=== PATIENT | female | born 1995 | race Caucasian/White ===

== ENCOUNTER 2018-05-19 21:21 | Emergency (ER) | payer OTHER ==
--- NOTE | 2018-05-19 21:22 | UC ---
Complaint Female HPI - HPI Summary HPI Summary: 22 yo female presents with vaginal discharge and odor for the last 3-4 days. She thought this was a yeast infection and treated herself with OTC medication with relief for about a day, but then came back. Denies fever, chills, abdominal pain, n/v, or dysuria. She has no concerns for STDs as she has had the same boyfriend for years, but would like testing via cultures today. - History Of Current Complaint Stated Complaint: VAGINAL DISCHARGE Time Seen by Provider: 05/19/18 21:22 Hx Obtained From: Patient Onset/Duration: Sudden Onset Timing: Constant Severity Currently: None - Allergies/Home Medications Allergies/Adverse Reactions: Allergies Allergy/AdvReac Type Severity Reaction Status Date / Time No Known Allergies Allergy Verified 05/19/18 21:42 Home Medications: Home Medications ARIPiprazole TAB* [Abilify 2 MG TAB*] 2 mg PO BEDTIME 05/19/18 [History Confirmed 05/19/18] Amphetamine MIXED SALT TAB* [Adderall TAB*] 10 mg PO DAILY 05/19/18 [History Confirmed 05/19/18] lamoTRIgine TAB(*) [LaMICtal TAB(*)] 200 mg PO BEDTIME 05/19/18 [History Confirmed 05/19/18] PMH/Surg Hx/FS Hx/Imm Hx - Additional Past Medical History Additional PMH: None Previously Healthy: Yes - Surgical History Surgical History: None - Family History Known Family History: Positive: None - Social History Occupation: Employed Full-time Lives: With Family Alcohol Use: None Substance Use Type: None Smoking Status (MU): Never Smoked Tobacco Review of Systems Constitutional: Negative Skin: Negative Respiratory: Negative Cardiovascular: Negative Genitourinary: Vaginal/Penile Discharge Motor: Negative Neurovascular: Negative Psychological: Negative All Other Systems Reviewed And Are Negative: Yes Physical Exam - Summary Physical Exam Summary: GENERAL: NAD. WDWN. No pain distress. SKIN: No rashes, sores, lesions, or open wounds. NECK: Supple. Nontender. No lymphadenopathy. CHEST: CTAB. No r/r/w. No accessory muscle use. Breathing comfortably and in no distress. CV: Tachycardia. Without m/r/g. Pulses intact. Brisk cap refill. ABDOMEN: Soft. NTTP. No distention or guarding. Bowel sounds present NEURO: Alert. PSYCH: Age appropriate behavior. Triage Information Reviewed: Yes Vital Signs: Vital Signs: Temp Pulse Resp BP Pulse Ox 98.9 F 118 16 116/84 99 05/19/18 21:34 05/19/18 21:34 05/19/18 21:34 05/19/18 21:34 05/19/18 21:34 Vital Signs Reviewed: Yes Pelvic Exam: Positive: External Exam Normal, No Cerv. Motion Tender, No Masses, Discharge - Thick white with thin milky and fishy odor, Other - Silke RN assisted with exam. Negative: Active Bleeding, Blood, Lesions, Mass, Ulcers Complaint Female Dx - Course Course Of Treatment: Suspect yeast and/or BV. Pt was given diflucan and one dose of flagyl in the clinical course. Rx for diflucan to repeat in 3 days if needed and rx for flagyl for 1 week sent. Cultures obtained for GC/Chlamydia, trich, BV, and yeast. Will call with results. - Differential Dx/Diagnosis Provider Diagnoses: Vaginal yeast infection. BV Discharge - Sign-Out/Discharge Documenting (check all that apply): Discharge/Admit/Transfer - Discharge Plan Condition: Stable Disposition: HOME Prescriptions: Fluconazole 100 MG TAB* [Diflucan 100 MG TAB*] 100 mg PO DAILY #1 tab metroNIDAZOLE [Flagyl 500 MG TAB] 500 mg PO BID #14 tab Patient Education Materials: Bacterial Vaginosis (ED), Yeast Infection (ED) Referrals: No Primary Care Phys,NOPCP [Primary Care Provider] - Additional Instructions: If you develop a fever, shortness of breath, chest pain, new or worsening symptoms - please call your PCP or go to the ED. - Billing Disposition and Condition Condition: STABLE Disposition: Home
[2018-05-19 21:42] VITALS: BP 116/84
[2018-05-19] MEDS ORDERED: metroNIDAZOLE TAB* 250 MG PO ONE (21:55)
[2018-05-19] MEDS ORDERED: Fluconazole 100 MG TAB* TAB PO ONE (21:55)
== END 2018-05-19 22:14 | disposition home or self-care (01) ==
LOC: UCEAST 21:21
DX: B37.3 Candidiasis of vulva and vagina (principal); N76.0 Acute vaginitis; B96.89 Other specified bacterial agents as the cause of diseases classified elsewhere
CPT/HCPCS: 87480; 87491; 87510; 87591; 87661; 99203; A9270-GY; G0463

== ENCOUNTER 2018-06-05 21:17 | Emergency (ER) | payer OTHER ==
[2018-06-05 21:28] VITALS: BP 118/77
--- NOTE | 2018-06-05 21:53 | ED ---
GI/ HPI - HPI Summary HPI Summary: 23-year-old female presents for STD testing today. She states she's been having a abnormal vaginal discharge past 2 days. States she states that it feels itchy. She denies any dysuria. She denies any fevers. No nausea no vomiting. She denies any constipation or diarrhea. She states that she needs an ekg per her psychiatrist as she has been having palpations. She states she is currently having palpitations she believes due to anxiety. She denies any chest pain or shortness breath. - History of Current Complaint Chief Complaint: UCGeneralIllness Time Seen by Provider: 06/05/18 21:44 Stated Complaint: STD TESTING Hx Last Menstrual Period: 05/22/18 Pain Intensity: 3 - Allergy/Home Medications Allergies/Adverse Reactions: Allergies Allergy/AdvReac Type Severity Reaction Status Date / Time No Known Allergies Allergy Verified 06/05/18 21:28 PMH/Surg Hx/FS Hx/Imm Hx Endocrine/Hematology History: Denies: Hx Diabetes, Hx Thyroid Disease Cardiovascular History: Denies: Hx Hypertension Respiratory History: Denies: Hx Asthma, Hx Chronic Obstructive Pulmonary Disease (COPD) GI History: Denies: Hx Ulcer Infectious Disease History: No Infectious Disease History: Denies: Hx Hepatitis, Hx Human Immunodeficiency Virus (HIV), Traveled Outside the [place] in Last 30 Days - Family History Known Family History: Positive: None - Social History Alcohol Use: Occasionally Substance Use Type: Reports: Marijuana Substance Use Comment - Amount & Last Used: ocassional Smoking Status (MU): Never Smoked Tobacco Review of Systems Negative: Fever Negative: Chest Pain Negative: Shortness Of Breath Positive: Other - vaginal discharge All Other Systems Reviewed And Are Negative: Yes Physical Exam Triage Information Reviewed: Yes Vital Signs On Initial Exam: Initial Vitals Temp Pulse Resp BP Pulse Ox 97.6 F 86 18 118/77 100 06/05/18 21:23 06/05/18 21:23 06/05/18 21:23 06/05/18 21:23 06/05/18 21:23 Vital Signs Reviewed: Yes Appearance: Positive: Well-Appearing Skin: Positive: Warm, Dry Head/Face: Positive: Normal Head/Face Inspection Eyes: Positive: Normal, Conjunctiva Clear ENT: Positive: Pharynx normal Respiratory/Lung Sounds: Positive: Clear to Auscultation, Breath Sounds Present Cardiovascular: Positive: Normal, RRR Abdomen Description: Positive: Nontender, Soft Bowel Sounds: Positive: Present Pelvic Exam: Positive: External Exam Normal, Cervicitis, Discharge - white, Tender w/ Cervical Motion Musculoskeletal: Positive: Normal Neurological: Positive: Normal Psychiatric: Positive: Normal Diagnostics - Vital Signs Vital Signs Temp Pulse Resp BP Pulse Ox 06/05/18 21:23 97.6 F 86 18 118/77 100 - Laboratory Lab Statement: Any lab studies that have been ordered have been reviewed, and results considered in the medical decision making process. - EKG No standard instances Cardiac Rate: NL EKG Rhythm: Sinus Rhythm ST Segment: Normal Ectopy: PACs EKG Interpretation: sinus arrhythmia GIGU Course/Dx - Course Course Of Treatment: 23-year-old female presents for STD testing today. She states she's been having a abnormal vaginal discharge past 2 days. States she states that it feels itchy. She denies any dysuria. She denies any fevers. No nausea no vomiting. She denies any constipation or diarrhea. She states that she needs an ekg per her psychiatrist as she has been having palpations. She states she is currently having palpitations she believes due to anxiety. She denies any chest pain or shortness breath. on exam abd soft nontender. pelvic exam white discharge present, has redness of cervix with minimal CMT. will treat as potential PID/cervicitis with rocephin and azithromycin. gave dose of diflucain too. ekg shows sinus arrhythmia. will wait for cultures. patient understand and agrees with plan. - Diagnoses Differential Diagnoses - Female: Pelvic Inflammatory Disease, STD, Urinary Tract Infection, Other - ekg Provider Diagnoses: Vaginal discharge Discharge - Sign-Out/Discharge Documenting (check all that apply): Patient Departure - Discharge Plan Condition: Good Disposition: HOME Patient Education Materials: Cervicitis (ED) Referrals: Sebastien Smith MD [Medical Doctor] - [facility] [Outside] Additional Instructions: you have been treated for potential std vs yeast infection Take Tylenol or ibuprofen for pain every 6 hours Follow up with call person Return to ED if develop any new or worsening symptoms - Billing Disposition and Condition Condition: GOOD Disposition: Home
[2018-06-05] MEDS ORDERED: cefTRIAXone VIAL(*) 250 MG VIAL IM ONE (22:01)
[2018-06-05] MEDS ORDERED: Azithromycin TAB* 250 MG PO ONE (22:01)
[2018-06-05] MEDS ORDERED: Fluconazole 100 MG TAB* TAB PO ONE (22:01)
[2018-06-05] MEDS ORDERED: Lidocaine 1% INJ* 10 MG/ML 30 ML SDV INJ ONE (22:09)
[2018-06-05] MEDS ORDERED: Lidocaine 1%* 5 ML VIAL ONE (22:13)
== END 2018-06-05 22:46 | disposition home or self-care (01) ==
LOC: UCEAST 21:17
DX: N89.8 Other specified noninflammatory disorders of vagina (principal)
CPT/HCPCS: 81003; 84702; 87480; 87491; 87510; 87591; 87661; 93005; 96372; 99212; A9270-GY; G0463; J0696